=== PATIENT | female | born 1950 | race Caucasian/White ===

== ENCOUNTER 2018-02-05 10:43 | Outpatient (CLI) | payer MEDICARE, MEDICAID ==
[~2018-02-05 10:43] MED LIST: ASPI-1 PO; BUPR1PAT TOP; CELE-193 PO; CHOL100034 PO; CYAN-19 PO; EFF25T PO; ESOM40CA30 PO; FERR325T32 PO; FURO-150 PO; GABA-532 PO; HYDR-4353 PO; LEVO25TA2 PO; TRAZ150T78 PO
[2018-02-05] MEDS ORDERED: LUTE1CAP6 PO (11:42)
[2018-02-05] MEDS ORDERED: MIRT30TA8 PO (11:42)
[2018-02-05 12:08] LABS: BASOPHILS % (AUTO) 0.7 % (0-1); EOSINOPHILS # (AUTO) 0.2 X10'3 (0-0.9); EOSINOPHILS % (AUTO) 3.3 % (0-6); LYMPHOCYTES # (AUTO) 1.2 X10'3 (1.1-4.8); LYMPHOCYTES % (AUTO) 19.7 % (21-51); MEAN CORPUSCULAR HEMOGLOBIN 32.2 PG (27.0-31.0); MEAN CORPUSCULAR HGB CONC 33.2 % (33.0-36.5); MEAN CORPUSCULAR VOLUME 96.9 FL (78-98); MEAN PLATELET VOLUME 7.3 FL (7.4-10.4); MONOCYTES # (AUTO) 0.2 X10'3 (0-0.9); NEUTROPHILS # (AUTO) 4.3 X10'3 (1.8-7.7); NEUTROPHILS % (AUTO) 72.3 % (42-75); PRE OP HEMATOCRIT 36.6 % (35.0-45.0); PRE OP HEMOGLOBIN 12.2 g/dL (12.0-16.0); PRE OP PLATELET COUNT 383 X10'3 (140-440); RED BLOOD COUNT 3.78 X10'6 (4.20-5.60); RED CELL DISTRIBUTION WIDTH 13.2 % (11.5-14.5)
[2018-02-05 12:22] LABS: PRE OP PROTIME 9.8 SECONDS (9.0-12.0)
[2018-02-05 12:31] LABS: ALBUMIN 3.1 G/DL (3.4-5.0); ALBUMIN/GLOBULIN RATIO 0.9 (1.1-1.5); ALKALINE PHOSPHATASE 124 IU/L (46-116); BLOOD UREA NITROGEN 61 MG/DL (7-18); BUN/CREATININE RATIO 21.3 (6.6-38.0); CHLORIDE 101 MMOL/L (99-107); CREATININE 2.87 MG/DL (0.40-0.90); HEMOGLOBIN A1C 5.2 % (4.5-6.2); PRE OP ALT 24 U/L (30-65); PRE OP ANION GAP 10 (8-16); PRE OP AST 26 U/L (10-37); PRE OP BILIRUB, TOTAL 0.3 MG/DL (0.0-1.0); PRE OP GLUCOSE 120 MG/DL (70-104); PRE OP SODIUM 141 MMOL/L (135-145); TOTAL CARBON DIOXIDE 29.8 MMOL/L (24-32); TOTAL PROTEIN 6.5 G/DL (6.4-8.2); eGFR 16 ML/MIN
[2018-02-05 12:40] LABS: PRE OP POTASSIUM 2.6 MMOL/L (3.4-5.1)
== END 2018-02-05 15:18 | disposition home or self-care (01) ==
LOC: PRE-OP 10:43 → EDSTATUS 02-09 14:15
PROVIDERS: ATTEND Orthopaedic Surgery
DX: Z01.818 Encounter for other preprocedural examination (principal); M75.121 Complete rotator cuff tear or rupture of right shoulder, not specified as traumatic; E11.22 Type 2 diabetes mellitus with diabetic chronic kidney disease; I12.9 Hypertensive chronic kidney disease with stage 1 through stage 4 chronic kidney disease, or unspecified chronic kidney disease; N18.9 Chronic kidney disease, unspecified; E03.9 Hypothyroidism, unspecified; F32.9 Major depressive disorder, single episode, unspecified; F41.9 Anxiety disorder, unspecified; K21.9 Gastro-esophageal reflux disease without esophagitis; D64.9 Anemia, unspecified; Z98.84 Bariatric surgery status; Z88.5 Allergy status to narcotic agent; Z88.1 Allergy status to other antibiotic agents; Z96.611 Presence of right artificial shoulder joint; Z85.828 Personal history of other malignant neoplasm of skin; Z87.891 Personal history of nicotine dependence
CPT/HCPCS: 36415; 80053; 83036; 84443; 85025; 85610; 85730; 86885; 86900; 86901; 87070

== ENCOUNTER 2018-02-27 09:16 | Day surgery (SDC) | payer MEDICARE, MEDICAID ==
[2018-02-20 12:49] LABS: BASOPHILS % (AUTO) 0.8 % (0-1); EOSINOPHILS # (AUTO) 0.3 X10'3 (0-0.9); EOSINOPHILS % (AUTO) 5.8 % (0-6); LYMPHOCYTES # (AUTO) 1.3 X10'3 (1.1-4.8); LYMPHOCYTES % (AUTO) 22.6 % (21-51); MEAN CORPUSCULAR HEMOGLOBIN 31.9 PG (27.0-31.0); MEAN CORPUSCULAR HGB CONC 32.5 % (33.0-36.5); MEAN CORPUSCULAR VOLUME 98.1 FL (78-98); MEAN PLATELET VOLUME 6.9 FL (7.4-10.4); MONOCYTES # (AUTO) 0.3 X10'3 (0-0.9); MONOCYTES % (AUTO) 4.7 % (2-12); NEUTROPHILS # (AUTO) 3.9 X10'3 (1.8-7.7); NEUTROPHILS % (AUTO) 66.1 % (42-75); PRE OP HEMATOCRIT 31.6 % (35.0-45.0); PRE OP PLATELET COUNT 248 X10'3 (140-440); RED BLOOD COUNT 3.23 X10'6 (4.20-5.60); RED CELL DISTRIBUTION WIDTH 12.9 % (11.5-14.5)
[2018-02-20 13:01] LABS: PRE OP HEMOGLOBIN 10.3 g/dL (12.0-16.0)
[2018-02-20 13:03] LABS: ALBUMIN 2.8 G/DL (3.4-5.0); ALBUMIN/GLOBULIN RATIO 0.9 (1.1-1.5); ALKALINE PHOSPHATASE 100 IU/L (46-116); BLOOD UREA NITROGEN 27 MG/DL (7-18); BUN/CREATININE RATIO 17.1 (6.6-38.0); CALCIUM 8.1 MG/DL (8.5-10.1); CHLORIDE 107 MMOL/L (99-107); CREATININE 1.58 MG/DL (0.40-0.90); PRE OP ALT 23 U/L (30-65); PRE OP ANION GAP 7 (8-16); PRE OP AST 26 U/L (10-37); PRE OP BILIRUB, TOTAL 0.2 MG/DL (0.0-1.0); PRE OP GLUCOSE 93 MG/DL (70-104); PRE OP POTASSIUM 3.4 MMOL/L (3.4-5.1); PRE OP SODIUM 141 MMOL/L (135-145); TOTAL CARBON DIOXIDE 27.5 MMOL/L (24-32); TOTAL PROTEIN 5.8 G/DL (6.4-8.2); eGFR 33 ML/MIN
[~2018-02-27] VITALS: Ht 154.9 cm; Wt 52.7 kg
[2018-02-27] VITALS (13 sets, daily range): BP systolic 116–134; BP diastolic 68–81
[~2018-02-27 09:16] MED LIST changes: -ASPI-1 PO; -CELE-193 PO; +LUTE1CAP6 PO; +MIRT30TA8 PO; +TIZA4CAP PO; -TRAZ150T78 PO; +ZAR2.5T PO; +ceFAZolin 1GM/D5W- ADD-VANTAGE 50 ML IV ONE; +famotidine 20mg tablet PO ONE; +ringers solution, lacted 1,000 ML IV SCH
[2018-02-27 10:06] LABS: ISTAT CREATININE 1.6 mg/dL (0.6-1.1); ISTAT HGB 10.9 g/dl (12.0-16.0); ISTAT IONIZED CALCIUM 1.16 mmol/L (1.03-1.32)
[2018-02-27] MEDS ORDERED: LIDOcaine 1% 30ml preserv. free vial ONE (10:12)
[2018-02-27 10:17] LABS: ISTAT K 2.9 mmol/L (3.5-5.1)
[2018-02-27] MEDS ORDERED: potassium Cl 20 mEq/100mL bag IV ONE (10:20)
[2018-02-27] MEDS ORDERED: POTASSIUM CL IV ONE (10:30)
[2018-02-27] MEDS ORDERED: [UNRECOGNIZED DRUG - OTHER] IV ONE (10:30)
[2018-02-27] MEDS ORDERED: LIDOCAINE 1% IV ONE (10:30)
[2018-02-27] MEDS ORDERED: BUPIVAcaine/PF 2.5mg/ml (0.25%) 10ml vial ONE ×2 (10:30→11:20)
[2018-02-27] MEDS ORDERED: ringers solution, lacted 1,000 ML IV SCH (10:31)
[2018-02-27] MEDS ORDERED: meperidine/PF 25mg/ml syringe IV PRN ×3 (10:35)
[2018-02-27] MEDS ORDERED: proCHLORperazine 10 MG/2 ml inj IV PRN (10:35)
[2018-02-27] MEDS ORDERED: ondansetron/PF 4mg/2ml inj IV PRN (10:35)
[2018-02-27] MEDS ORDERED: HYDROcodone/acetaminophen 10/325mg tab PO ONE (10:40)
[2018-02-27] MEDS ORDERED: fentaNYL/PF 50MCG/1 ML 2ML syringe ONE (11:35)
[2018-02-27] MEDS ORDERED: MIDAZolam 5mg/5ml vial ONE (11:35)
[2018-02-27] MEDS ORDERED: ketorolac trometh. 30mg/ml inj. ONE (11:38)
== END 2018-02-27 14:04 | disposition home or self-care (01) ==
LOC: PAS 09:16
PROVIDERS: ATTEND Orthopaedic Surgery Hand Surgery
DX: M65.831 Other synovitis and tenosynovitis, right forearm (principal); E87.6 Hypokalemia; M19.012 Primary osteoarthritis, left shoulder; M18.11 Unilateral primary osteoarthritis of first carpometacarpal joint, right hand; M19.031 Primary osteoarthritis, right wrist; M19.011 Primary osteoarthritis, right shoulder; G89.29 Other chronic pain; G47.33 Obstructive sleep apnea (adult) (pediatric); E78.5 Hyperlipidemia, unspecified; E03.9 Hypothyroidism, unspecified; E11.22 Type 2 diabetes mellitus with diabetic chronic kidney disease; I12.9 Hypertensive chronic kidney disease with stage 1 through stage 4 chronic kidney disease, or unspecified chronic kidney disease; N18.9 Chronic kidney disease, unspecified; K21.9 Gastro-esophageal reflux disease without esophagitis; M06.9 Rheumatoid arthritis, unspecified; F41.8 Other specified anxiety disorders; F32.9 Major depressive disorder, single episode, unspecified; Z87.891 Personal history of nicotine dependence; Z86.69 Personal history of other diseases of the nervous system and sense organs; Z72.89 Other problems related to lifestyle; Z85.828 Personal history of other malignant neoplasm of skin; Z86.19 Personal history of other infectious and parasitic diseases; Z79.82 Long term (current) use of aspirin; Z79.891 Long term (current) use of opiate analgesic; Z79.2 Long term (current) use of antibiotics; Z88.5 Allergy status to narcotic agent; Z88.1 Allergy status to other antibiotic agents; Z96.611 Presence of right artificial shoulder joint; Z96.612 Presence of left artificial shoulder joint; Z90.49 Acquired absence of other specified parts of digestive tract; Z98.84 Bariatric surgery status; Z79.899 Other long term (current) drug therapy; Z98.890 Other specified postprocedural states; Z82.49 Family history of ischemic heart disease and other diseases of the circulatory system
CPT/HCPCS: 25116; 36415; 80047; 80053; 85025; A6222; A6449; J0690; J1885; J2250; J3010; J3480; J3490; 88305; J7030; J7120

== ENCOUNTER 2018-03-13 11:16 | Day surgery (SDC) | payer MEDICARE, MEDICAID ==
[2018-03-13] VITALS (11 sets, daily range): BP systolic 96–143; BP diastolic 57–85
[~2018-03-13] VITALS: Ht 154.9 cm; Wt 53.5 kg
[~2018-03-13 11:16] MED LIST changes: -CHOL100034 PO; -CYAN-19 PO; +DOXY100T2 PO; -ESOM40CA30 PO; -LUTE1CAP6 PO; +OMEP40CA37 PO; +POTA10TA19 PO; -TIZA4CAP PO; -ZAR2.5T PO
[2018-03-13 12:18] LABS: BASOPHILS % (AUTO) 0.3 % (0-1); EOSINOPHILS # (AUTO) 0.2 X10'3 (0-0.9); EOSINOPHILS % (AUTO) 2.6 % (0-6); LYMPHOCYTES # (AUTO) 0.8 X10'3 (1.1-4.8); LYMPHOCYTES % (AUTO) 13.3 % (21-51); MEAN CORPUSCULAR HEMOGLOBIN 31.9 PG (27.0-31.0); MEAN CORPUSCULAR VOLUME 96.8 FL (78-98); MEAN PLATELET VOLUME 6.9 FL (7.4-10.4); MONOCYTES # (AUTO) 0.4 X10'3 (0-0.9); MONOCYTES % (AUTO) 7.1 % (2-12); NEUTROPHILS # (AUTO) 4.4 X10'3 (1.8-7.7); NEUTROPHILS % (AUTO) 76.7 % (42-75); PRE OP HEMATOCRIT 26.8 % (35.0-45.0); PRE OP PLATELET COUNT 270 X10'3 (140-440); RED BLOOD COUNT 2.77 X10'6 (4.20-5.60); RED CELL DISTRIBUTION WIDTH 12.6 % (11.5-14.5)
[2018-03-13 12:21] LABS: PRE OP HEMOGLOBIN 8.8 g/dL (12.0-16.0)
[2018-03-13 12:31] LABS: PRE OP INR 1.1 INR; PRE OP PROTIME 11.1 SECONDS (9.0-12.0)
[2018-03-13 12:36] LABS: ALBUMIN 2.4 G/DL (3.4-5.0); ALBUMIN/GLOBULIN RATIO 0.7 (1.1-1.5); ALKALINE PHOSPHATASE 119 IU/L (46-116); BLOOD UREA NITROGEN 31 MG/DL (7-18); CALCIUM 8.4 MG/DL (8.5-10.1); CHLORIDE 102 MMOL/L (99-107); CREATININE 1.72 MG/DL (0.40-0.90); PRE OP ALT 18 U/L (30-65); PRE OP ANION GAP 10 (8-16); PRE OP AST 19 U/L (10-37); PRE OP BILIRUB, TOTAL 0.3 MG/DL (0.0-1.0); PRE OP GLUCOSE 67 MG/DL (70-104); PRE OP SODIUM 138 MMOL/L (135-145); TOTAL CARBON DIOXIDE 26.1 MMOL/L (24-32); eGFR 30 ML/MIN
[2018-03-13 12:42] LABS: PRE OP POTASSIUM 3.2 MMOL/L (3.4-5.1)
[2018-03-13] MEDS ORDERED: HYDROcodone/acetaminophen 10/325mg tab PO ONE ×2 (12:45→15:40)
[2018-03-13] MEDS ORDERED: fentaNYL/PF 50MCG/1 ML 2ML syringe ONE ×2 (13:39→13:48)
[2018-03-13] MEDS ORDERED: midazolam 2 mg/2 ml injection ONE (13:39)
[2018-03-13] MEDS ORDERED: propofol inj 20 ML IV ONE (13:41)
[2018-03-13] MEDS ORDERED: sevoflurane 250ml liquid IH ONE (13:56)
[2018-03-13] MEDS ORDERED: ROPIVAcaine 0.5% (5mg/ml) 30ml vial ONE (14:10)
--- NOTE | 2018-03-13 14:26 | NUR ---
Received from OR via , accompanied by DR. LYNNE, Anesthesiologist and report given by Anesthesiolgist. S/P I & D RT. WRIST PER DR. BAKER. PT. ASLEEP, RESPS. EVEN & UNLABORED. LMA IN PLACE. EQUAL BREATH SOUNDS NOTED. RT. WRIST BANDAGE DRY & INTACT. RT. FINGERS SWOLLEN, HX OF SAME PRE OP, PINK, WARM W/ GOOD CAP REFILL. ELEVATED ON PILLOW. LT. WRIST IV PATENT. REASSURED.
--- NOTE | 2018-03-13 14:40 | NUR ---
PT. AWAKE, ATTEMPTING TO SIT UP. REASSURED. LMA DC'D, STRONG COUGH. AIRWAY CLEAR. VOICE CLEAR. REASSURED.
--- NOTE | 2018-03-13 15:30 | NUR ---
A X O X 4. APPROP. RESPS. EVEN & UNLABORED. UP TO BEDSIDE COMMODE, VOIDED WITHOUT DIFFICULTY.
--- NOTE | 2018-03-13 16:00 | NUR ---
MADE READY FOR DISCHARGE. UP & DRESSED W/ MINIMAL ASSIST. STEADY. DENIES DIZZINESS/NAUSEA. IV DC'D, CANNULA INTACT. ACI'S REVIEWED W/ UNDERSTANDING OF SAME. TO AUTO VIA WHEELCHAIR W/ RN. FRIEND TO DRIVE. REASSURED.
== END 2018-03-13 16:15 | disposition home or self-care (01) ==
LOC: PAS 11:16
PROVIDERS: ATTEND Orthopaedic Surgery Hand Surgery
DX: T81.49XA Infection following a procedure, other surgical site, initial encounter (principal); T81.30XA Disruption of wound, unspecified, initial encounter; Y83.8 Other surgical procedures as the cause of abnormal reaction of the patient, or of later complication, without mention of misadventure at the time of the procedure; Y92.89 Other specified places as the place of occurrence of the external cause; M19.031 Primary osteoarthritis, right wrist; M65.841 Other synovitis and tenosynovitis, right hand; L03.113 Cellulitis of right upper limb; M19.012 Primary osteoarthritis, left shoulder; M18.11 Unilateral primary osteoarthritis of first carpometacarpal joint, right hand; M19.011 Primary osteoarthritis, right shoulder; M47.816 Spondylosis without myelopathy or radiculopathy, lumbar region; G47.33 Obstructive sleep apnea (adult) (pediatric); E03.9 Hypothyroidism, unspecified; K21.9 Gastro-esophageal reflux disease without esophagitis; E11.22 Type 2 diabetes mellitus with diabetic chronic kidney disease; I12.9 Hypertensive chronic kidney disease with stage 1 through stage 4 chronic kidney disease, or unspecified chronic kidney disease; N18.4 Chronic kidney disease, stage 4 (severe); D64.9 Anemia, unspecified; M06.9 Rheumatoid arthritis, unspecified; E11.42 Type 2 diabetes mellitus with diabetic polyneuropathy; F32.9 Major depressive disorder, single episode, unspecified; Z88.5 Allergy status to narcotic agent; Z96.612 Presence of left artificial shoulder joint; Z88.1 Allergy status to other antibiotic agents; Z96.611 Presence of right artificial shoulder joint; Z90.49 Acquired absence of other specified parts of digestive tract; Z98.84 Bariatric surgery status; Z79.82 Long term (current) use of aspirin; Z79.891 Long term (current) use of opiate analgesic; Z79.1 Long term (current) use of non-steroidal anti-inflammatories (NSAID); Z79.2 Long term (current) use of antibiotics; Z87.891 Personal history of nicotine dependence; Z86.69 Personal history of other diseases of the nervous system and sense organs; Z72.89 Other problems related to lifestyle; Z85.828 Personal history of other malignant neoplasm of skin; Z98.890 Other specified postprocedural states; Z79.899 Other long term (current) drug therapy; Z82.49 Family history of ischemic heart disease and other diseases of the circulatory system
CPT/HCPCS: 10180; 36415; 80053; 85025; 85610; 85730; 93005; A6222; A6449; J0690; J2250; J2704; J3010; J7120; 87070; 87075; 87077; 87102; 87186; A7000; J2795; J7030

== ENCOUNTER 2018-04-10 09:22 | Inpatient (IN) | payer MEDICARE, MEDICAID | END 2018-04-13 20:15 | disposition home or self-care (01) | LOC: PAS 09:22 → ORTHO 4S 13:59 | PROC: 0R9N0ZZ Drainage of Right Wrist Joint, Open Approach (ICD-10-PCS; principal; 2018-04-10 12:58) | DX: M00.9 Pyogenic arthritis, unspecified (principal); L03.113 Cellulitis of right upper limb; M65.841 Other synovitis and tenosynovitis, right hand; S52.601D Unspecified fracture of lower end of right ulna, subsequent encounter for closed fracture with routine healing ==

== ENCOUNTER 2018-07-21 09:02 | Inpatient (IN) | payer MEDICARE, MEDICAID | END 2018-07-24 19:05 | disposition still patient (30) | LOC: PAS 09:02 → ORTHO 4S 16:13 | PROC: 0PC Upper Bones, Extirpation (ICD-10-PCS; principal; 2018-07-21 11:45) | PROC: 0PC Upper Bones, Extirpation (ICD-10-PCS; 2018-07-21 11:45) | DX: M00.9 Pyogenic arthritis, unspecified (principal); L03.113 Cellulitis of right upper limb; M86.141 Other acute osteomyelitis, right hand; M65.841 Other synovitis and tenosynovitis, right hand; M25.531 Pain in right wrist; B95.62 Methicillin resistant Staphylococcus aureus infection as the cause of diseases classified elsewhere ==

== ENCOUNTER 2018-12-14 06:20 | Inpatient (IN) | payer MEDICARE, MEDICAID ==
[2018-12-08 14:25] LABS: BASOPHILS % (AUTO) 0.8 % (0-1); EOSINOPHILS # (AUTO) 0.3 X10'3 (0-0.9); EOSINOPHILS % (AUTO) 5.3 % (0-6); LYMPHOCYTES # (AUTO) 1.3 X10'3 (1.1-4.8); LYMPHOCYTES % (AUTO) 20.3 % (21-51); MEAN CORPUSCULAR HEMOGLOBIN 31.4 PG (27.0-31.0); MEAN CORPUSCULAR HGB CONC 32.8 g/dL (33.0-36.5); MEAN CORPUSCULAR VOLUME 95.7 FL (78-98); MONOCYTES # (AUTO) 0.5 X10'3 (0-0.9); MONOCYTES % (AUTO) 7.2 % (2-12); NEUTROPHILS # (AUTO) 4.4 X10'3 (1.8-7.7); NEUTROPHILS % (AUTO) 66.4 % (42-75); PRE OP HEMATOCRIT 29.4 % (35.0-45.0); PRE OP PLATELET COUNT 191 X10'3 (140-440); RED BLOOD COUNT 3.07 X10'6 (4.20-5.60); RED CELL DISTRIBUTION WIDTH 13.8 % (11.5-14.5)
[2018-12-08 14:38] LABS: ALBUMIN 3.1 G/DL (3.4-5.0); ALKALINE PHOSPHATASE 120 IU/L (46-116); BLOOD UREA NITROGEN 19 MG/DL (7-18); BUN/CREATININE RATIO 16.8 (6.6-38.0); CALCIUM 8.8 MG/DL (8.5-10.1); CHLORIDE 111 MMOL/L (99-107); CREATININE 1.13 MG/DL (0.40-0.90); PRE OP ALT 20 U/L (30-65); PRE OP ANION GAP 9 (8-16); PRE OP AST 14 U/L (10-37); PRE OP BILIRUB, TOTAL 0.2 MG/DL (0.0-1.0); PRE OP GLUCOSE 81 MG/DL (70-104); PRE OP POTASSIUM 4.4 MMOL/L (3.4-5.1); PRE OP SODIUM 147 MMOL/L (135-145); TOTAL PROTEIN 6.2 G/DL (6.4-8.2); eGFR 48 ML/MIN
[2018-12-08 14:40] LABS: PRE OP HEMOGLOBIN 9.7 g/dL (12.0-16.0)
[2018-12-14] VITALS (17 sets, daily range): BP systolic 106–131; BP diastolic 39–80
[~2018-12-14] VITALS: Ht 154.9 cm; Wt 64.7 kg
[~2018-12-14 06:20] MED LIST changes: +CHOL10002 PO; -DOXY100T2 PO; -EFF25T PO; -HYDR-4353 PO; +OMEP40CA13 PO; -OMEP40CA37 PO; -POTA10TA19 PO; +PRAZ2CAP2 PO; +SERT50TA10 PO; +TIZA4TAB11 PO; -ceFAZolin 1GM/D5W- ADD-VANTAGE 50 ML IV ONE; +cefazolin/dext.iso 2gm/50ml 50 ML IV ONE
[2018-12-14] MEDS ORDERED: BUPIVAcaine/PF 2.5mg/ml (0.25%) 10ml vial ONE (06:57)
--- NOTE | 2018-12-14 07:00 | NUR ---
DR DEANDRA QUEZADA PRESENT ELADIA DOUGHERTY. Addendum: 12/14/18 at 0750 by Gwendolyn Quigley RN Amended: Links added.
[2018-12-14] MEDS ORDERED: LIDOcaine 0.5% (5mg/ml) 50ml vial ONE (07:07)
[2018-12-14] MEDS ORDERED: ringers solution, lacted 1,000 ML IV SCH (07:10)
[2018-12-14] MEDS ORDERED: ondansetron/PF 4mg/2ml inj IV PRN (07:10)
[2018-12-14] MEDS ORDERED: hydrALAZINE 20mg/ml inj. IV PRN (07:10)
[2018-12-14] MEDS ORDERED: fentaNYL/PF 50MCG/1 ML 2ML syringe IV PRN ×2 (07:10)
[2018-12-14] MEDS ORDERED: HYDROmorphone inj. 0.5 MG/0.5 ML DISP.SYRIN IV PRN ×2 (07:10)
[2018-12-14] MEDS ORDERED: labetalol 20mg/4ml (5mg/ml) syringe IV PRN (07:10)
[2018-12-14] MEDS ORDERED: sevoflurane 250ml liquid IH ONE (08:04)
[2018-12-14] MEDS ORDERED: fentaNYL/PF 50MCG/1 ML 2ML syringe ONE (08:04)
[2018-12-14] MEDS ORDERED: midazolam 2 mg/2 ml injection ONE ×2 (08:05)
[2018-12-14] MEDS ORDERED: ketorolac trometh. 30mg/ml inj. ONE (08:34)
[2018-12-14] MEDS ORDERED: ROPIVAcaine 0.5% (5mg/ml) 30ml vial ONE (08:34)
[2018-12-14] MEDS ORDERED: propofol inj 20 ML IV ONE (08:40)
[2018-12-14] MEDS ORDERED: LIDOcaine 2% (20mg/ml) 5ml vial ONE (08:40)
--- NOTE | 2018-12-14 09:36 | NUR ---
Received from OR via , accompanied by Anesthesiologist DR LIRIANO and report given by Anesthesiolgist. AWAKENS TO VOICE. VITALS STABLE. DRESSING DI. MICHELLE PAIN. FINGERS WARM AND PINK.
[2018-12-14] MEDS ORDERED: CADD PCA waste documentation MC SCH (09:50)
[2018-12-14] MEDS ORDERED: acetaminophen 1,000mg/100ml IV 100 ML IV SCH (10:05)
[2018-12-14] MEDS: HYDROmorphone/NS 1 mg/ml CADD 50 ML IV SCH ×7 (10:19→23:00)
--- NOTE | 2018-12-14 10:36 | NUR ---
Report called to receiving nurse. Transferred via [facility] . Special Issues communicated to receiving nurse. AWAKE AND ORIENTED. VITALS STABLE. DRESSING DI. STATES PAIN IS IMPROVING. TO [place]THO RM 4021X AT THIS TIME.
--- NOTE | 2018-12-14 11:00 | NUR ---
ASSUMED CARE, RECEIVED REPORT FROM ESTIVEN YO, ASSISTED PATIENT TO BATHROOM BEFORE TRANSFERRING TO BED. WILL CONTINUE TO MONITOR.
--- NOTE | 2018-12-14 13:12 | NUR ---
WHEN DO CADD SETTING CHECKS, THE VOLUME GIVEN WAS NOT CLEARED OUT. STATES 17MG GIVEN BUT ONLY 7/7 ATTEMPTS AND GIVEN, WHICH DOES NOT MATCH. SHE HAS ONLY RECEIVED 1.4MG.
[2018-12-14] MEDS: clindamycin 300mg/D5W 50mL 50 ML IV SCH ×2 (13:40→19:55)
--- NOTE | 2018-12-14 15:00 | NUR ---
PATIENT HAS GEOVANNYS PATCH, OK TO LEAVE ON PER DR BAKER AND PATIENT WILL CHANGE ON FRIDAY AT HOME.
[2018-12-14] MEDS: ferrous sulfate 325mg tablet PO SCH (17:33)
--- NOTE | 2018-12-14 18:20 | NUR ---
Problems reprioritized. Patient report given, questions answered & plan of care reviewed with TERRANCE YO.
[2018-12-14] MEDS: vitamin D (cholecalciferol) 1,000 unit tablet PO SCH (19:55)
[2018-12-14] MEDS: lactobacillus rhamnosus 10,000 MMU CELLS/CAPSULE PO SCH (19:55)
[2018-12-14] MEDS: prazosin 1mg capsule PO SCH (20:05)
[2018-12-14] MEDS: mirtazapine 15mg tablet PO SCH (20:05)
[2018-12-14] MEDS: gabapentin 300mg capsule PO SCH (20:05)
--- NOTE | 2018-12-14 21:00 | NUR ---
BUTRAN PATCH NOTED ON RIGHT LOWER BREAST. MD AWARE PT IS ON MEDICATION.
--- NOTE | 2018-12-14 22:19 | NUR ---
CALLED DR. BAKER TO INFORM HIM PT RIGHT ARM SLIGHTLY SWOLLEN, CSM IS GOOD. PT REFUSED TO USE POWDER PACK, ICE IN ZIPLOCK, AND TO ELEVATE HAND. PT COMPLAINS SHE IS UNABLE TO SLEEP, MEDICATION ORDERED AND TRANSCRIBED.
[2018-12-14] MEDS: diphenhydrAMINE 25mg capsule PO PRN (22:32)
[2018-12-15] MEDS: HYDROmorphone/NS 1 mg/ml CADD 50 ML IV SCH ×4 (00:48→07:00)
--- NOTE | 2018-12-15 01:39 | NUR ---
Pt c/o tape on IV is itching, pt has been given benadryl for sleep, but c/o unable to sleep. Pt c/o pain, refuses teaching on elevating and relaxation. Pt has pushed the dilaudid CADD button, still c/o pain, c/o lights in eyes but refuses to have lights out. Wants less ice in icepack but refuses to apply ice appropriately.
[2018-12-15] MEDS: clindamycin 300mg/D5W 50mL 50 ML IV SCH ×4 (01:55→20:45)
[2018-12-15 02:00] VITALS: BP 151/75
--- NOTE | 2018-12-15 02:00 | NUR ---
IV SITE CHECKED, ARM ELEVATED, PROVIDED ICE PACK, STILL COMPLAINING OF PAIN. BOLUS 0.2MG DILATID GIVEN PER PROTOCOL WITH NO RELIEF, PT STILL COMPLAINING OF PAIN. INCREASED DEMAND DOSE TO 0.3MG Q10M PER PROTOCOL.
--- NOTE | 2018-12-15 04:58 | NUR ---
SHMUEL RODRIGUEZ INFORMED RIGHT HAND IS SWOLLEN AND PT IS STILL COMPLAINING OF PAIN. TORADOL 15MG IV ONCE ORDERED AND LOOSEN SPLINT.
[2018-12-15] MEDS ORDERED: ketorolac trometh. 30mg/ml inj. IV ONE (05:00)
[2018-12-15 06:00] VITALS: BP 125/56
[2018-12-15] MEDS ORDERED: HYDROmorphone 2mg tablet PO PRN (06:20)
--- NOTE | 2018-12-15 06:30 | NUR ---
Patient in room ORTHO 4021. I have received report from SANAZ Marquez and had the opportunity to ask questions and assume patient care.
[2018-12-15] MEDS: lactobacillus rhamnosus 10,000 MMU CELLS/CAPSULE PO SCH ×2 (07:23→20:42)
[2018-12-15] MEDS: pantoprazole 40mg Tablet.DR PO SCH (07:23)
[2018-12-15] MEDS: furosemide 20MG tablet PO SCH (07:24)
[2018-12-15] MEDS: levoTHYROXINE 25mcg tablet PO SCH (07:24)
[2018-12-15] MEDS: gabapentin 300mg capsule PO SCH ×3 (07:24→20:42)
[2018-12-15] MEDS: vitamin D (cholecalciferol) 1,000 unit tablet PO SCH ×2 (07:24→20:43)
[2018-12-15] MEDS: tizanidine 4mg tablet PO SCH (07:24)
[2018-12-15] MEDS: sertraline 50mg tablet PO SCH (07:25)
[2018-12-15] MEDS: ferrous sulfate 325mg tablet PO SCH ×3 (07:25→18:02)
[2018-12-15 10:00] VITALS: BP 102/48
[2018-12-15] MEDS: HYDROmorphone inj. 0.5 MG/0.5 ML DISP.SYRIN IV PRN ×2 (10:24→14:32)
[2018-12-15] MEDS: HYDROmorphone 2mg tablet PO PRN ×2 (11:22→19:01)
--- NOTE | 2018-12-15 11:45 | NUR ---
Education given to pt multiple times during the morning to inform her to hold her affected wrist (R), to hold it straight across her chest and on an elevated pillow above her heart. Pt continue to use her right hand to "make her bed," then cannot understand why she has pain. Pt states she understands, but continually hold her right forearm straight up where it is putting pressure/redness on the area outside the splint, located near the elbow. Edema and redness have increased greatly in her RFA. At approximately 1400, the Carpenters Helper was paged and asked to come and re evaluate her splint. Carpenters Helper arrived and removed some of the splint and put a new splint/wrap on pts RFA that covered the area near her elbow, where she was bending and causing redness/swelling to her RFA. Will continue to monitor patient.
--- NOTE | 2018-12-15 12:11 | NUR ---
Joint surgery patient trigger: Pt PO 100% regular diet meeting healing needs s/p R wrist arthrodesis. LBM 12/14. No nutrition concerns at this time. Addendum: 12/15/18 at [address] Amended: Links added.
--- NOTE | 2018-12-15 15:06 | NUR ---
Pt continues to use her right hand to open doors, straighten her bedding, put her right arm underneath her lower body when scooting up in bed. Pt advised by supervisor mail carriers and myself to not use her RFA/Wrist and she will continue to have increased swelling/pain and could cause further problems. Splint was replaced by Postal Mail Carrier but pt does not listen to consistent education about protecting her RFA from excess pain & swelling. Pt was overheard telling the Postal Mail Carrier how she would like to splint put on. Postal Mail Carrier was advised to modify the splint as he has been trained. Pt states she will not be going home tomorrow and she is in extreme pain. Will continue to monitor and advise and educate pt on position of RFA above heart to decrease swelling. Will continue to monitor.
[2018-12-15 18:00] VITALS: BP 131/63
--- NOTE | 2018-12-15 18:57 | NUR ---
Problems reprioritized. Patient report given, questions answered & plan of care reviewed with Latesha/Camille YO.
[2018-12-15] MEDS: diphenhydrAMINE 25mg capsule PO PRN (20:41)
[2018-12-15] MEDS: prazosin 1mg capsule PO SCH (20:42)
[2018-12-15] MEDS: mirtazapine 15mg tablet PO SCH (20:42)
[2018-12-15 22:00] VITALS: BP 118/51
[2018-12-16] MEDS: HYDROmorphone 2mg tablet PO PRN ×2 (03:00→13:55)
[2018-12-16] MEDS: clindamycin 300mg/D5W 50mL 50 ML IV SCH ×3 (03:01→15:00)
--- NOTE | 2018-12-16 06:10 | NUR ---
REPORT GIVEN TO SANAZ STREET.
[2018-12-16] MEDS: furosemide 20MG tablet PO SCH (09:32)
[2018-12-16] MEDS: pantoprazole 40mg Tablet.DR PO SCH (09:32)
[2018-12-16] MEDS: levoTHYROXINE 25mcg tablet PO SCH (09:32)
[2018-12-16] MEDS: vitamin D (cholecalciferol) 1,000 unit tablet PO SCH (09:32)
[2018-12-16] MEDS: lactobacillus rhamnosus 10,000 MMU CELLS/CAPSULE PO SCH (09:33)
[2018-12-16] MEDS: ferrous sulfate 325mg tablet PO SCH ×2 (09:33→13:08)
[2018-12-16] MEDS: sertraline 50mg tablet PO SCH (09:33)
[2018-12-16] MEDS: tizanidine 4mg tablet PO SCH (09:33)
[2018-12-16] MEDS: gabapentin 300mg capsule PO SCH ×2 (09:33→13:08)
[2018-12-16] MEDS: HYDROmorphone inj. 0.5 MG/0.5 ML DISP.SYRIN IV PRN (09:40)
[2018-12-16 10:00] VITALS: BP 110/45
--- NOTE | 2018-12-16 11:10 | NUR ---
MINDA Valentin stated pt will go home but needs splint before d/c. Pagezaida chemical research technician "pt needs volar and dorsal arm splint to be placed so pt can d/c." Addendum: 12/16/18 at 1345 by Tia Salazar RN sent 2nd page for arm splint so pt can d/c home
== END 2018-12-16 15:40 | disposition home or self-care (01) | DRG 513 ==
LOC: PAS IN 06:20 → INTOOBSV 06:20 → EDSTATUS 08:30 → ORTHO 4S 10:30 → OBSVTOIN 12-15 14:33
PROVIDERS: ADMIT Orthopaedic Surgery Hand Surgery; ATTEND Orthopaedic Surgery Hand Surgery
PROC: 0RGN0KZ Fusion of Right Wrist Joint with Nonautologous Tissue Substitute, Open Approach (ICD-10-PCS; 2018-12-14)
PROC: 0RGN07Z Fusion of Right Wrist Joint with Autologous Tissue Substitute, Open Approach (ICD-10-PCS; 2018-12-14)
PROC: 0RGN04Z Fusion of Right Wrist Joint with Internal Fixation Device, Open Approach (ICD-10-PCS; principal; 2018-12-14 08:04)
DX: M19.041 Primary osteoarthritis, right hand (principal); L03.113 Cellulitis of right upper limb; M65.841 Other synovitis and tenosynovitis, right hand; I25.10 Atherosclerotic heart disease of native coronary artery without angina pectoris; K21.9 Gastro-esophageal reflux disease without esophagitis; M06.9 Rheumatoid arthritis, unspecified; M19.031 Primary osteoarthritis, right wrist; E03.9 Hypothyroidism, unspecified; G47.33 Obstructive sleep apnea (adult) (pediatric); M25.331 Other instability, right wrist; N18.9 Chronic kidney disease, unspecified; E11.22 Type 2 diabetes mellitus with diabetic chronic kidney disease; M25.611 Stiffness of right shoulder, not elsewhere classified; D64.9 Anemia, unspecified; F41.8 Other specified anxiety disorders; G62.9 Polyneuropathy, unspecified; G89.29 Other chronic pain; Z98.84 Bariatric surgery status; Z88.5 Allergy status to narcotic agent; Z88.1 Allergy status to other antibiotic agents; Z82.49 Family history of ischemic heart disease and other diseases of the circulatory system; Z83.3 Family history of diabetes mellitus; Z87.891 Personal history of nicotine dependence
CPT/HCPCS: 36415; 80053; 82948; 85025; 87081; 93005; A4215; A6446; A7000; C1713; C1776; G0378; J0131; J1170; J1885; J2001; J2250; J2704; J2795; J3010; J3490; J7120; Q0163

== ENCOUNTER 2020-12-05 06:19 | Inpatient (IN) | payer MEDICARE, MEDICAID ==
[~2020-12-05] VITALS: Ht 152.4 cm; Wt 60.0 kg
[2020-12-05] VITALS (22 sets, daily range): BP systolic 82–114; BP diastolic 6–69
[~2020-12-05 06:19] MED LIST changes: -BUPR1PAT TOP; -CHOL10002 PO; +CHOL20004 PO; +COLLAGEN COMPLEX PO; +FLUO-212 PO; -GABA-532 PO; +GABA800T11 PO; +HYDR-3972 PO; +MECL-159 PO; -MIRT30TA8 PO; +MIRT45TA79 PO; -OMEP40CA13 PO; +PANT40TA54 PO; +POTA99TA21 PO; -PRAZ2CAP2 PO; -SERT50TA10 PO; +SUCR1TAB PO; -TIZA4TAB11 PO; +ZAR2.5T PO; -cefazolin/dext.iso 2gm/50ml 50 ML IV ONE
[2020-12-05] MEDS ORDERED: ketorolac trometh. 30mg/ml inj. ONE (06:46)
[2020-12-05] MEDS ORDERED: ROPIVAcaine 0.5% (5mg/ml) 30ml vial ONE ×2 (06:46→09:04)
[2020-12-05] MEDS ORDERED: vancomycin/NS 1 GM ADD-VANTAGE 250 ML IV ONE (07:25)
[2020-12-05] MEDS ORDERED: ceFAZolin 2gm in dextrose, iso 100 ML IV ONE (07:25)
[2020-12-05 07:32] LABS: BASOPHILS % (AUTO) 1.1 % (0-1); EOSINOPHILS # (AUTO) 0.3 X10'3 (0-0.9); EOSINOPHILS % (AUTO) 6.9 % (0-6); LYMPHOCYTES # (AUTO) 1.1 X10'3 (1.1-4.8); LYMPHOCYTES % (AUTO) 29.1 % (21-51); MEAN CORPUSCULAR HEMOGLOBIN 30.5 PG (27.0-31.0); MEAN CORPUSCULAR VOLUME 92.3 FL (78-98); MEAN PLATELET VOLUME 7.6 FL (7.4-10.4); MONOCYTES # (AUTO) 0.4 X10'3 (0-0.9); MONOCYTES % (AUTO) 9.5 % (2-12); NEUTROPHILS % (AUTO) 53.4 % (42-75); PRE OP PLATELET COUNT 266 X10'3 (140-440); RED BLOOD COUNT 3.58 X10'6 (4.20-5.60); RED CELL DISTRIBUTION WIDTH 15.4 % (11.5-14.5)
[2020-12-05 07:36] LABS: PRE OP HEMOGLOBIN 10.9 g/dL (12.0-16.0)
[2020-12-05 07:47] LABS: ALBUMIN 3.3 G/DL (3.4-5.0); ALBUMIN/GLOBULIN RATIO 1.1 (1.1-1.5); ALKALINE PHOSPHATASE 110 IU/L (46-116); BLOOD UREA NITROGEN 63 MG/DL (7-18); CALCIUM 8.3 MG/DL (8.5-10.1); CHLORIDE 106 MMOL/L (99-107); CREATININE 1.91 MG/DL (0.40-0.90); PRE OP ALT 22 U/L (30-65); PRE OP ANION GAP 13 (8-16); PRE OP AST 20 U/L (10-37); PRE OP BILIRUB, TOTAL 0.2 MG/DL (0.0-1.0); PRE OP GLUCOSE 91 MG/DL (70-104); PRE OP SODIUM 142 MMOL/L (135-145); TOTAL CARBON DIOXIDE 23.1 MMOL/L (24-32); TOTAL PROTEIN 6.2 G/DL (6.4-8.2); eGFR 26 ML/MIN
[2020-12-05 07:50] LABS: PRE OP POTASSIUM 2.9 MMOL/L (3.4-5.1)
[2020-12-05] MEDS ORDERED: midazolam 1 mg/ML 2ml injection ONE (09:04)
[2020-12-05] MEDS ORDERED: fentaNYL/PF 50MCG/1 ML 2ML syringe ONE (09:04)
[2020-12-05] MEDS ORDERED: propofol inj 20 ML IV ONE (09:08)
[2020-12-05] MEDS ORDERED: LIDOcaine 1%/PF 5ML 10 MG/ML VIAL ONE (09:08)
[2020-12-05] MEDS ORDERED: sevoflurane 250ml liquid IH ONE (09:20)
[2020-12-05] MEDS ORDERED: glycopyrrolate 0.2mg/ml inj ONE (09:20)
[2020-12-05] MEDS ORDERED: ondansetron/PF 4mg/2ml inj IV PRN ×2 (10:10→10:50)
[2020-12-05] MEDS ORDERED: meperidine/PF 25mg/ml syringe IV PRN ×2 (10:10)
[2020-12-05] MEDS ORDERED: ringers solution, lacted 1,000 ML IV SCH (10:10)
[2020-12-05] MEDS ORDERED: ROPIVAcaine 0.2% (10 MG/5 ML) BOLUS INJECTION INTERSCALE PRN (10:10)
[2020-12-05] MEDS ORDERED: HYDROmorphone/PF 0.2 MG/ML SYRINGE IV PRN ×2 (10:10)
[2020-12-05] MEDS ORDERED: ondansetron/PF 4mg/2ml inj ONE (10:49)
[2020-12-05] MEDS ORDERED: ePHEDrine 50MG/ML INJ. ONE (10:49)
[2020-12-05] MEDS ORDERED: acetaminophen 1,000mg/100ml IV 100 ML IV ONE (10:49)
[2020-12-05] MEDS ORDERED: dexamethasone sod phosphate 4mg/ml inj. ONE (10:49)
[2020-12-05] MEDS ORDERED: HYDROmorphone inj. 0.5 MG/0.5 ML DISP.SYRIN IV PRN (10:50)
[2020-12-05] MEDS ORDERED: diphenhydrAMINE 25mg capsule PO PRN ×2 (10:50)
[2020-12-05] MEDS ORDERED: magnesium hydroxide 30ml (MOM) UD suspension PO PRN (10:50)
[2020-12-05] MEDS ORDERED: meclizine 12.5mg tablet PO PRN (10:50)
[2020-12-05] MEDS ORDERED: oxyCODONE IR 5mg (immed. release) tablet PO PRN (10:50)
[2020-12-05] MEDS ORDERED: bisacodyl 10mg suppository rectal RC PRN (10:50)
[2020-12-05] MEDS ORDERED: acetaminophen 325mg tablet PO PRN (10:50)
--- NOTE | 2020-12-05 10:55 | NUR ---
Received from OR via , accompanied by Anesthesiologist and report given by Anesthesiolgist. PATIENT WAKING UP, DENIES PAIN, V/S WNL, NEUROCHECKS INTACT,, 20G PIV RUE, DRESSING TO LEFT SHOULDER CDI WITH COLD POWDER PACK AND SLING, . SCD ON.
[2020-12-05] MEDS ORDERED: potassium Cl 20 mEq SR tablet PO PRN ×2 (11:20)
[2020-12-05] MEDS ORDERED: magnesium Cl slow-release 64mg tablet PO PRN (11:20)
[2020-12-05] MEDS ORDERED: magnesium 4gm in 100ml NS 100 ML IV PRN (11:20)
--- NOTE | 2020-12-05 11:29 | NUR ---
K 2.8 DR GARCIA NOTIFIED AND ORDER RECIEVED FOR ELECTROLYTE REPLACEMENT PROTICALS
[2020-12-05] MEDS: ROPIVAcaine 0.2%/PF PUMP/bolus 545 ML INTERSCALE SCH (11:42)
[2020-12-05] MEDS: sucralfate 1 gm tablet PO SCH ×3 (12:00→20:57)
[2020-12-05 12:35] LABS: APPEARANCE,SYNOVIAL FLUID BLOODY; COLOR,SYNOVIAL FLUID RED; SYN RBC 835000 /CU MM (0); SYN WBC 12000 /CU MM (0-200)
[2020-12-05 12:36] LABS: LYMPHOCYTES,SYNOVIAL FLUID 40 % (0-75); MONOCYTES,SYNOVIAL FLUID 19 % (0-0); NEUTROPHILS,SYNOVIAL FLUID 41 % (0-25)
[2020-12-05] MEDS: gabapentin 300mg capsule PO SCH ×2 (13:00→21:00)
[2020-12-05] MEDS ORDERED: BUPRENORPHINE (Butrans) 10MCG PATCH.TDWK (7-day patch) TP SCH (13:00)
[2020-12-05] MEDS: potassium Cl 40MEQ/1/2NS 520ml 520 ML IV PRN (13:22)
--- NOTE | 2020-12-05 13:35 | NUR ---
PATIENTA&OX4, DENIES PAIN, V/S WNL, NEUROCHECKS INTACT, 20G PIV LUE, DRESSING TO RIGHT SHOULDER CDI WITH COLD POWDER PACK, SCD ON. REPORT CALLED AND PATIENT TRANSPORTED TO FLOOR AND HOOKED UP TO MONITORS IN NEW ROOM AND EXCEPTING RN HAS TAKEN OVER PATIENT CARE. ELECTROLYTES REPLACING SEE EMAR, ON QUE STARTED
--- NOTE | 2020-12-05 14:15 | NUR ---
Pt's primary RN on lunch when pt arrived on unit via hospital bed. Ice bag "support" saturated w/ blood was removed to assess bleeding. Shoulder drsg was reinforced w/ 4x4s and Abd pad using foam tape. Bleeding lessened and no further blood seen beyond original drsg.. Pt L arm and hand assisted to a neutral position as pt stated arm is "numb" from surgery. Pt used On-Q x1. Pt rtnd to bed from BSC w/ assist. Gown changed, skin cleansed. Pt talkative and cooperative. VSS. Notified SANAZ Oliveros, of pt's condition upon her return.
[2020-12-05] MEDS: potassium cl 20mEq in 1/2 NS 1,000 ML IV SCH ×2 (16:48→18:50)
[2020-12-05] MEDS: gabapentin 400mg capsule PO SCH ×2 (16:49→20:56)
[2020-12-05] MEDS: acetaminophen 325mg tablet PO SCH ×2 (16:50→20:58)
[2020-12-05] MEDS: ceFAZolin/D5W- 1GM premix 50 ML IV SCH ×2 (17:45→23:56)
[2020-12-05] MEDS ORDERED: vancomycin/NS 1 GM ADD-VANTAGE 250 ML IV SCH (20:00)
[2020-12-05] MEDS ORDERED: COLLAGEN COMPLEX PO SCH (20:00)
[2020-12-05] MEDS: mirtazapine 15mg tablet PO SCH (20:56)
[2020-12-05] MEDS: furosemide 20MG tablet PO SCH (20:56)
[2020-12-05] MEDS: pantoprazole 40mg Tablet.DR PO SCH (20:57)
[2020-12-05] MEDS: sennosides 8.6mg tablet PO SCH (21:00)
[2020-12-05] MEDS: HYDROmorphone 1 mg/ml syringe IV PRN (22:46)
--- NOTE | 2020-12-06 00:10 | NUR ---
Student Medication Administration: For this medication-pass time frame, all medication were reviewed, dispensed, administered and documented per hospital policy by RAMEZ Black [facility].
[2020-12-06] MEDS: K and/or MAG REPLACEMENT MC SCH ×3 (02:28→20:00)
[2020-12-06] MEDS: potassium Cl 40MEQ/1/2NS 520ml 520 ML IV PRN ×2 (02:30→02:31)
[2020-12-06] MEDS: acetaminophen 325mg tablet PO SCH ×4 (02:34→20:14)
[2020-12-06] MEDS: oxyCODONE IR 5mg (immed. release) tablet PO PRN ×3 (02:34→11:39)
[2020-12-06] MEDS: potassium cl 20mEq in 1/2 NS 1,000 ML IV SCH ×3 (02:50→20:21)
[2020-12-06 03:07] VITALS: BP 91/45
[2020-12-06 06:00] VITALS: BP 99/58
--- NOTE | 2020-12-06 06:06 | NUR ---
reported to days. noted pt oxy is due at 0630. up to BSC and back at 0530. sling and onQ intact
[2020-12-06 06:43] LABS: BASOPHILS % (AUTO) 0.8 % (0-1); EOSINOPHILS # (AUTO) 0.2 X10'3 (0-0.9); EOSINOPHILS % (AUTO) 4.6 % (0-6); HEMATOCRIT 27.3 % (35.0-45.0); HEMOGLOBIN 8.9 g/dl (12.0-16.0); LYMPHOCYTES # (AUTO) 1.2 X10'3 (1.1-4.8); LYMPHOCYTES % (AUTO) 23.3 % (21-51); MEAN CORPUSCULAR HEMOGLOBIN 30.1 PG (27.0-31.0); MEAN CORPUSCULAR HGB CONC 32.6 g/dL (33.0-36.5); MEAN CORPUSCULAR VOLUME 92.5 FL (78-98); MEAN PLATELET VOLUME 7.9 FL (7.4-10.4); MONOCYTES # (AUTO) 0.4 X10'3 (0-0.9); MONOCYTES % (AUTO) 8.1 % (2-12); NEUTROPHILS # (AUTO) 3.4 X10'3 (1.8-7.7); NEUTROPHILS % (AUTO) 63.2 % (42-75); PLATELET COUNT 236 X10'3 (140-440); RED BLOOD COUNT 2.95 X10'6 (4.20-5.60); RED CELL DISTRIBUTION WIDTH 15.3 % (11.5-14.5); WHITE BLOOD COUNT 5.3 X10'3 (4.5-11.0)
--- NOTE | 2020-12-06 06:51 | NUR ---
oxy given for PT work this am. BP 99/58
[2020-12-06 07:04] LABS: ISTAT CREATININE 1.7 mg/dL (0.6-1.1); ISTAT K 2.8 mmol/L (3.5-5.1); POC BUN/CREATININE RATIO 32.4 (6.6-38.0)
[2020-12-06 07:05] LABS: ISTAT HGB 9.2 g/dl (12.0-16.0); ISTAT IONIZED CALCIUM 1.16 mmol/L (1.03-1.32)
[2020-12-06 07:31] LABS: ANION GAP 10 (8-16); CHLORIDE 107 MMOL/L (99-107); POTASSIUM 3.1 MMOL/L (3.5-5.1); SODIUM 140 MMOL/L (135-145); TOTAL CARBON DIOXIDE 22.9 MMOL/L (24-32)
[2020-12-06] MEDS: sucralfate 1 gm tablet PO SCH ×4 (07:35→20:17)
[2020-12-06] MEDS: ferrous sulfate 325mg tablet PO SCH (07:35)
[2020-12-06] MEDS: pantoprazole 40mg Tablet.DR PO SCH ×2 (07:35→20:18)
[2020-12-06] MEDS: gabapentin 400mg capsule PO SCH ×2 (07:35→20:44)
[2020-12-06] MEDS: levoTHYROXINE 25mcg tablet PO SCH (07:36)
[2020-12-06] MEDS: FLUoxetine 20mg capsule PO SCH (07:37)
[2020-12-06] MEDS: gabapentin 300mg capsule PO SCH (07:37)
[2020-12-06] MEDS: metolazone 2.5mg tablet PO SCH (07:38)
[2020-12-06] MEDS: cholecalciferol (vitamin D3) 1,000 unit (25mcg) tablet PO SCH (07:38)
[2020-12-06] MEDS: HYDROmorphone 1 mg/ml syringe IV PRN ×3 (07:55→20:41)
[2020-12-06] MEDS ORDERED: aspirin 325mg tablet PO SCH (08:30)
[2020-12-06] MEDS: POTASSIUM BICARB 20meq eff tab 20 MEQ TABLET.EFF PO PRN ×3 (09:57→20:44)
[2020-12-06 11:00] VITALS: BP 102/55
[2020-12-06 11:36] VITALS: BP 103/53
--- NOTE | 2020-12-06 18:31 | NUR ---
Report given to Beatriz YO.
--- NOTE | 2020-12-06 18:35 | NUR ---
Patient in room [facility]. I have received report from SANAZ Ramos and had the opportunity to ask questions and assume patient care. Addendum: 12/06/20 at 1835 by Timo Miner RN Amended: Links added.
--- NOTE | 2020-12-06 19:15 | NUR ---
SPOKE TO BRANDON REGARDING PT QUESTION OF WHAT TO DO DURING THERAPY. PARAOPTOMETRIC STATES SHE WILL SPEAK WITH MD IN AM. OK TO HAVE ICE WEIGHT ON SHOULDER. PAIN MEDICATION READJUSTED PER PT REQUESTS AND ORDERS.
[2020-12-06 19:30] VITALS: BP 132/66
[2020-12-06] MEDS: docusate sod 100mg capsule PO SCH (20:00)
[2020-12-06] MEDS: HYDROcodone/acetaminophen 10/325mg tab PO PRN (20:13)
[2020-12-06] MEDS: mirtazapine 15mg tablet PO SCH (20:15)
[2020-12-06] MEDS: celeCOXIB 100mg capsule PO SCH (20:16)
[2020-12-06] MEDS: furosemide 20MG tablet PO SCH (20:18)
[2020-12-06] MEDS: sennosides 8.6mg tablet PO SCH (20:22)
[2020-12-07] VITALS: BP 124/55
[2020-12-07] MEDS: potassium cl 20mEq in 1/2 NS 1,000 ML IV SCH (01:32)
[2020-12-07] MEDS: acetaminophen 325mg tablet PO SCH ×2 (01:32→08:12)
[2020-12-07] MEDS: HYDROcodone/acetaminophen 10/325mg tab PO PRN ×5 (01:33→23:35)
[2020-12-07] MEDS: HYDROmorphone 1 mg/ml syringe IV PRN ×4 (01:57→19:37)
--- NOTE | 2020-12-07 05:36 | NUR ---
pT STATES SHE SLEPT WELL LAST NIGHT AND IS FEELING BETTER. Addendum: 12/07/20 at 0537 by Timo Miner RN Amended: Links added.
--- NOTE | 2020-12-07 06:31 | NUR ---
Problems reprioritized. Patient report given, questions answered & plan of care reviewed with SANAZ ALEJANDRA. Addendum: 12/07/20 at 0631 by Timo Miner RN Amended: Links added.
[2020-12-07 06:39] LABS: BASOPHILS % (AUTO) 0.8 % (0-1); EOSINOPHILS # (AUTO) 0.3 X10'3 (0-0.9); EOSINOPHILS % (AUTO) 8.6 % (0-6); HEMATOCRIT 26.2 % (35.0-45.0); HEMOGLOBIN 8.6 g/dl (12.0-16.0); LYMPHOCYTES # (AUTO) 1.4 X10'3 (1.1-4.8); LYMPHOCYTES % (AUTO) 35.9 % (21-51); MEAN CORPUSCULAR HEMOGLOBIN 30.7 PG (27.0-31.0); MEAN CORPUSCULAR HGB CONC 32.8 g/dL (33.0-36.5); MEAN CORPUSCULAR VOLUME 93.5 FL (78-98); MEAN PLATELET VOLUME 7.8 FL (7.4-10.4); MONOCYTES # (AUTO) 0.3 X10'3 (0-0.9); MONOCYTES % (AUTO) 7.7 % (2-12); NEUTROPHILS # (AUTO) 1.8 X10'3 (1.8-7.7); PLATELET COUNT 214 X10'3 (140-440); RED CELL DISTRIBUTION WIDTH 15.8 % (11.5-14.5); WHITE BLOOD COUNT 3.9 X10'3 (4.5-11.0)
[2020-12-07 06:58] LABS: MAGNESIUM 1.7 MG/DL (1.5-2.4); POTASSIUM 3.4 MMOL/L (3.5-5.1)
[2020-12-07 07:33] VITALS: BP 117/75
[2020-12-07] MEDS: docusate sod 100mg capsule PO SCH ×2 (08:00→19:38)
--- NOTE | 2020-12-07 08:03 | NUR ---
MD Kincaid rounded on floor. Asked about PT per PT request. Surgeon states to do normal PROM and AROM like a normal total shoulder but to go easy on her. Plans to DC HAM. Wants onQ replace. Pharmacy notified for new one.
[2020-12-07] MEDS: cholecalciferol (vitamin D3) 1,000 unit (25mcg) tablet PO SCH (08:11)
[2020-12-07] MEDS: levoTHYROXINE 25mcg tablet PO SCH (08:11)
[2020-12-07] MEDS: pantoprazole 40mg Tablet.DR PO SCH ×2 (08:11→19:36)
[2020-12-07] MEDS: celeCOXIB 100mg capsule PO SCH ×2 (08:11→19:36)
[2020-12-07] MEDS: ferrous sulfate 325mg tablet PO SCH (08:12)
[2020-12-07] MEDS: sucralfate 1 gm tablet PO SCH ×4 (08:12→19:37)
[2020-12-07] MEDS: FLUoxetine 20mg capsule PO SCH (08:12)
[2020-12-07] MEDS: K and/or MAG REPLACEMENT MC SCH ×2 (08:23→19:38)
[2020-12-07] MEDS: metolazone 2.5mg tablet PO SCH (08:23)
--- NOTE | 2020-12-07 08:23 | NUR ---
Pt. has not had a BM since before surgery. Refuses stool softner and MOM. Extensive education on ASE of pain medications and risks of not taking a stool softner explained to pt. but pt. persists stating, "It's entirely normal for me not to have a BM for 4 to 5 days." Explained normal bowel patterns. Pt. refused education.
[2020-12-07] MEDS: ROPIVAcaine 0.2%/PF PUMP/bolus 545 ML INTERSCALE SCH (10:04)
[2020-12-07] MEDS: POTASSIUM BICARB 20meq eff tab 20 MEQ TABLET.EFF PO PRN ×3 (10:06→19:36)
[2020-12-07] MEDS ORDERED: acetaminophen 325mg tablet PO PRN (10:50)
[2020-12-07 11:00] VITALS: BP 103/54
[2020-12-07 18:00] VITALS: BP 102/45
--- NOTE | 2020-12-07 18:37 | NUR ---
Gave report to Afia YO.
--- NOTE | 2020-12-07 18:38 | NUR ---
Patient in room [facility]. I have received report from Rachel YO and had the opportunity to ask questions and assume patient care.
[2020-12-07] MEDS: gabapentin 400mg capsule PO SCH (19:36)
[2020-12-07] MEDS: furosemide 20MG tablet PO SCH (19:37)
[2020-12-07] MEDS: mirtazapine 15mg tablet PO SCH (19:37)
[2020-12-07] MEDS: sennosides 8.6mg tablet PO SCH (19:38)
[2020-12-07] MEDS ORDERED: gabapentin 400mg capsule PO SCH (21:00)
[2020-12-08] VITALS: BP 100/62
[2020-12-08] MEDS: HYDROmorphone 1 mg/ml syringe IV PRN ×2 (01:50→12:34)
[2020-12-08] MEDS: HYDROcodone/acetaminophen 10/325mg tab PO PRN ×2 (05:37→09:18)
[2020-12-08 06:24] LABS: BASOPHILS % (AUTO) 0.9 % (0-1); EOSINOPHILS # (AUTO) 0.3 X10'3 (0-0.9); EOSINOPHILS % (AUTO) 7.9 % (0-6); HEMATOCRIT 24.9 % (35.0-45.0); HEMOGLOBIN 8.3 g/dl (12.0-16.0); LYMPHOCYTES # (AUTO) 1.4 X10'3 (1.1-4.8); LYMPHOCYTES % (AUTO) 32.8 % (21-51); MEAN CORPUSCULAR HGB CONC 33.5 g/dL (33.0-36.5); MEAN CORPUSCULAR VOLUME 92.5 FL (78-98); MEAN PLATELET VOLUME 7.7 FL (7.4-10.4); MONOCYTES # (AUTO) 0.3 X10'3 (0-0.9); MONOCYTES % (AUTO) 7.7 % (2-12); NEUTROPHILS # (AUTO) 2.1 X10'3 (1.8-7.7); NEUTROPHILS % (AUTO) 50.7 % (42-75); PLATELET COUNT 211 X10'3 (140-440); RED BLOOD COUNT 2.69 X10'6 (4.20-5.60); RED CELL DISTRIBUTION WIDTH 15.8 % (11.5-14.5); WHITE BLOOD COUNT 4.1 X10'3 (4.5-11.0)
[2020-12-08 06:33] LABS: MAGNESIUM 1.7 MG/DL (1.5-2.4)
--- NOTE | 2020-12-08 06:50 | NUR ---
Patient in room [facility]. I have received report from SANAZ Oreilly and had the opportunity to ask questions and assume patient care.
--- NOTE | 2020-12-08 06:56 | NUR ---
Problems reprioritized. Patient report given, questions answered & plan of care reviewed with Romelia RN.
[2020-12-08 07:30] VITALS: BP 82/42
[2020-12-08] MEDS: K and/or MAG REPLACEMENT MC SCH (07:58)
[2020-12-08] MEDS: metolazone 2.5mg tablet PO SCH (07:59)
[2020-12-08 09:09] VITALS: BP 92/54
[2020-12-08] MEDS: FLUoxetine 20mg capsule PO SCH (09:16)
[2020-12-08] MEDS: celeCOXIB 100mg capsule PO SCH (09:16)
[2020-12-08] MEDS: ferrous sulfate 325mg tablet PO SCH (09:16)
[2020-12-08] MEDS: cholecalciferol (vitamin D3) 1,000 unit (25mcg) tablet PO SCH (09:16)
[2020-12-08] MEDS: levoTHYROXINE 25mcg tablet PO SCH (09:16)
[2020-12-08] MEDS: sucralfate 1 gm tablet PO SCH ×2 (09:16→12:12)
[2020-12-08] MEDS: pantoprazole 40mg Tablet.DR PO SCH (09:17)
[2020-12-08] MEDS: docusate sod 100mg capsule PO SCH (09:22)
[2020-12-08] MEDS: POTASSIUM BICARB 20meq eff tab 20 MEQ TABLET.EFF PO PRN ×2 (10:50→14:56)
[2020-12-08 11:00] VITALS: BP 88/44
--- NOTE | 2020-12-08 11:20 | NUR ---
FELECIA Waters notified of hypotension & pt requesting to still receive pain meds despite SBP 92. Jeannette to order bolus then stated about 1/2 way through bolus to give the dilaudid 1mg IV.
[2020-12-08] MEDS ORDERED: normal saline 1000ml 1,000 ML IV ONE (11:50)
[2020-12-08] MEDS ORDERED: HYDROmorphone inj. 0.5 MG/0.5 ML DISP.SYRIN IV ONE (14:30)
--- NOTE | 2020-12-08 15:05 | NUR ---
DC inst provided to pt. IV DC'd, tip intact. All belongings sent w/pt. WC to vehicle.
== END 2020-12-08 15:08 | disposition home or self-care (01) | DRG 483 ==
LOC: PAS 06:19 → SUR 3N 11:01
PROVIDERS: ADMIT Orthopaedic Surgery; ATTEND Orthopaedic Surgery
PROC: 0RPK0JZ Removal of Synthetic Substitute from Left Shoulder Joint, Open Approach (ICD-10-PCS; 2020-12-05)
PROC: 0RHK08Z Insertion of Spacer into Left Shoulder Joint, Open Approach (ICD-10-PCS; 2020-12-05)
PROC: 3E0T3BZ Introduction of Anesthetic Agent into Peripheral Nerves and Plexi, Percutaneous Approach (ICD-10-PCS; 2020-12-05)
PROC: 0RRK0J6 Replacement of Left Shoulder Joint with Synthetic Substitute, Humeral Surface, Open Approach (ICD-10-PCS; principal; 2020-12-05 09:20)
DX: T84.098A Other mechanical complication of other internal joint prosthesis, initial encounter (principal); D62 Acute posthemorrhagic anemia; G89.29 Other chronic pain; S42.152A Displaced fracture of neck of scapula, left shoulder, initial encounter for closed fracture; S42.142A Displaced fracture of glenoid cavity of scapula, left shoulder, initial encounter for closed fracture; Y80.2 Prosthetic and other implants, materials and accessory physical medicine devices associated with adverse incidents; I95.9 Hypotension, unspecified; Z20.822 Contact with and (suspected) exposure to COVID-19; Z79.899 Other long term (current) drug therapy; Y92.89 Other specified places as the place of occurrence of the external cause
CPT/HCPCS: 36415; 80047; 80051; 80053; 82948; 83735; 84132; 85025; 86885; 86900; 86901; 87015; 87070; 87081; 87635; 89051; 93306; 97110; 97116; 97161; 97530; A4565; A4618; A7000; C1713; C1776; C9803; G0378; J0131; J0690; J1100; J1170; J1885; J2250; J2405; J2704; J2795; J3010; J3370; J3480; J3490; J7030; J7120